=== PATIENT | female | born 1945 | race Caucasian/White ===

== ENCOUNTER 2017-06-11 09:36 | Emergency (ER) | payer OTHER ==
[~2017-06-11] VITALS: Ht 162.6 cm; Wt 70.7 kg
[2017-06-11 10:26] LABS: MCH 30.7 PG (29.0-34.0); MCHC 32.9 G/DL (30.0-36.0); MCV 93.2 FL (83-99); MEAN PLAT.VOLUME 9.5 uM^3 (9.5-12.4); PLATELET COUNT 264 K/uL (156-360); RBC DIS.WIDTH-CV 12.8 % (11.8-14.6); RBC DIS.WIDTH-SD 43.8 % (39-53); WHITE BLOOD COUNT 9.1 K/uL (4.1-10.2)
[2017-06-11 10:31] LABS: INTER. NORMALIZED RATIO 1.1; PROTHROMBIN TIME 12.1 SEC (10.2-12.9)
[2017-06-11 10:34] LABS: CHLORIDE 104 mEq/L (99-109); POTASSIUM 4.4 mEq/L (3.7-5.4); PTT 38.2 SEC (25-37); SODIUM 135 mEq/L (136-147)
[2017-06-11 10:36] LABS: GLUCOSE 146 mg/dL (70-99)
[2017-06-11 10:37] LABS: ANION GAP 9 MEQ/L (2-14)
[2017-06-11 10:38] LABS: TOTAL BILIRUBIN 0.3 mg/dL (0.0-1.0)
[2017-06-11 10:39] LABS: ALKALINE PHOSPHATASE 144 IU/L (3-129)
[2017-06-11 10:40] LABS: GFR ESTIMATE (CALCULATED) > 59 mL/min/
[2017-06-11 10:41] LABS: UREA NITROGEN (BUN) 9 mg/dL (9-23)
[2017-06-11 10:45] LABS: TROP-I INTERPRETATION NEGATIVE; TROPONIN-I < 0.01 ng/mL (0.0-0.30)
[2017-06-11] MEDS ORDERED: VIBRAMYCIN100 MG PO (12:10)
[2017-06-11] MEDS ORDERED: TESSALON200 MG PO (12:10)
[2017-06-11] MEDS ORDERED: HYCODAN SYRUP480 ML PO (12:10)
[2017-06-11 12:42] VITALS: BP 119/76
== END 2017-06-11 12:43 | disposition home or self-care (01) ==
LOC: EME 09:36
PROVIDERS: Nurse Practitioner Family
DX: J20.8 Acute bronchitis due to other specified organisms (principal); B34.9 Viral infection, unspecified; Z87.891 Personal history of nicotine dependence; K21.9 Gastro-esophageal reflux disease without esophagitis; I10 Essential (primary) hypertension; F41.9 Anxiety disorder, unspecified; E78.5 Hyperlipidemia, unspecified; Z85.3 Personal history of malignant neoplasm of breast
CPT/HCPCS: 71275; 80053; 84484; 85027; 85610; 85730; 87502; 87651 90; 93005; 99281; 99285; J7030